=== PATIENT | male | born 1960 | race Hispanic/Latino ===

== ENCOUNTER 2019-02-24 09:47 | Day surgery (SDC) | payer MEDICARE ==
[~2019-02-24 09:47] MED LIST: NACL 0.9% 1000 ML IR ONE; WATER FOR IRRIG STERILE IR ONE
[2019-02-24] MEDS ORDERED: NACL 0.9% 1000 ML 1,000 ML IV SCH ×2 (10:00→11:00)
[2019-02-24] MEDS ORDERED: NACL 0.9% 1000 ML 1,000 ML ONE (10:17)
[2019-02-24] MEDS ORDERED: NARCAN 0.4 MG/1 ML IV PRN (10:36)
[2019-02-24] MEDS ORDERED: DILAUDID IV PRN (10:36)
[2019-02-24] MEDS ORDERED: ANCEF/STERILE WATER 2 GM/20 ML 2 GM/20 ML SYRINGE IV NR (10:36)
[2019-02-24] MEDS ORDERED: SUBLIMAZE IV PRN (10:36)
[2019-02-24] MEDS ORDERED: DEMEROL IV PRN (10:36)
[2019-02-24] MEDS ORDERED: ZOFRAN IV PRN (10:36)
[2019-02-24 11:05] LABS: Basophils % (Auto) 0.4 % (0.0-1.8); Eosinophils # (Auto) 0.7 K/mm3 (0.0-0.4); Hematocrit 49.1 % (35.5-45.6); Hemoglobin 16.8 gm/dl (11.8-15.2); Lymphocytes # (Auto) 1.3 K/mm3 (1.2-5.4); Lymphocytes % (Auto) 14.3 % (13.4-35.0); Mean Corpuscular HGB Conc 34 % (32-34); Mean Corpuscular Volume 104 fl (84-94); Monocytes # (Auto) 1.1 K/mm3 (0.0-0.8); Monocytes % (Auto) 12.2 % (0.0-7.3); Platelet Count 235 K/mm3 (140-440); Red Blood Count 4.73 M/mm3 (3.65-5.03); Red Cell Distribution Width 14.4 % (13.2-15.2)
[2019-02-24 11:15] LABS: Calcium 9.3 mg/dL (8.4-10.2)
[2019-02-24] MEDS ORDERED: XYLOCAINE MPF 2% ONE (11:16)
[2019-02-24] MEDS ORDERED: SUBLIMAZE ONE (11:16)
[2019-02-24] MEDS ORDERED: DIPRIVAN 10 MG/ML IV ONE (11:16)
[2019-02-24] MEDS ORDERED: ROBINUL ONE (11:17)
--- NOTE | 2019-02-24 11:29 | Anesthesia Consultation ---
Anesthesia Consult and Med Hx Date of service: 02/24/19 - Airway Anesthetic Teeth Evaluation: Good ROM Head & Neck: Inadequate Mental/Hyoid Distance: Inadequate Mallampati Class: Class III Intubation Access Assessment: Possibly Difficult - Pulmonary Exam CTA: Yes - Cardiac Exam Cardiac Exam: RRR - Pre-Operative Health Status ASA Pre-Surgery Classification: ASA4 Proposed Anesthetic Plan: General - Pulmonary Hx Smoking: No Hx Asthma: No Hx Respiratory Symptoms: No Home Oxygen Therapy: No Hx Sleep Apnea: Yes (DX SLEEP APNEA WITH CPAP USE.) - Cardiovascular System Hx Hypertension: Yes (X 40 YRS; ordered EKG this morning ) Hx Coronary Artery Disease: No Hx Heart Attack/AMI: No Hx Cardia Arrhythmia: No - Central Nervous System Hx Neuromuscular Disorder: No CVA: No Hx Psychiatric Problems: No - Gastrointestinal Hx Gastroesophageal Reflux Disease: No - Endocrine Hx End Stage Renal Disease: Yes (HD yesterday; K+ 5.3 today) Hx Liver Disease: No Hx Insulin Dependent Diabetes: No Hx Non-Insulin Dependent Diabetes: No Hx Thyroid Disease: No - Hematic Hx Anemia: No - Other Systems Hx Alcohol Use: No Hx Cancer: Yes (prostate cancer) Hx Obesity: Yes - Additional Comments Anesthesia Medical History Comments: Shoulder replacement 06/2018 with no GAC; no FHAC
--- NOTE | 2019-02-24 11:30 | Anesthesia Day of Surgery ---
Anesthesia Day of Surgery - Day of Surgery Patient Examined: Yes Patient H&P Reviewed: Yes Patient is NPO: Yes Beta Blockers: No (n/a) Cardiac Clearance: No (n/a) Pulmonary Clearance: No (n/a)
[2019-02-24] MEDS ORDERED: Vasostrict ONE (11:53)
[2019-02-24] MEDS ORDERED: WATER FOR IRRIG STERILE IR ONE (12:12)
[2019-02-24] MEDS ORDERED: NACL 0.9% 1000 ML IR ONE (12:20)
--- NOTE | 2019-02-24 12:56 | Post Operative Note ---
Date of procedure: 02/24/19 Pre-op diagnosis: ca prostate Post-op diagnosis: same Findings: rec cap Procedure: cysto cryo ablation Anesthesia: GETA Surgeon: CARMELA SPAIN Estimated blood loss: minimal Pathology: none Condition: stable Disposition: PACU
--- NOTE | 2019-02-24 12:57 | Discharge Summary ---
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
--- NOTE | 2019-02-24 14:13 | Operative Report ---
PREOPERATIVE DIAGNOSIS: Recurrent prostate cancer, post-radiation seed therapy. POSTOPERATIVE DIAGNOSIS: Recurrent prostate cancer, post-radiation seed therapy. PROCEDURE: Cystoscopy, cryoablation of prostate. SURGEON: Kali Carter MD ANESTHESIA: General. FINDINGS: This is a gentleman for salvage cryosurgical ablation of the prostate. He has had previous radiation therapy. All risks and complications discussed. He is also on dialysis, but is not anuric. DESCRIPTION OF PROCEDURE: The patient was brought to the operating room and placed on the operating table. Following induction of anesthesia, placed in lithotomy position, prepped and draped in usual sterile fashion. Just to be on the safe side, flexible cystoscopy was carried out. There were no strictures. A 16-catheter was placed. Scrotum was elevated and the ultrasound was placed. All the probes were checked. Prostate measured about 22 grams. Probes 1 and 2 were placed ____ placed towards the right side of the gland. External sphincter temperature probe was also placed. Probes 3 and 4 were placed and 5 was placed. It should be noted that the gland was small. We did not want to damage the urethra, did not place a probe #6. We thought we had excellent coverage and we always placed it after the first freeze if we needed it. At this point, flexible cystoscopy was carried out and the wire was placed and under ultrasound guidance, a warming catheter was placed in great position. At this point, this was secured and we rechecked the probe multiple times and first freeze was carried out. We carried the ice ball down to the base and [place] got to about 3 degrees. Thaw was carried out, the probes were rechecked, a second freeze was carried out as well. Excellent ice was achieved, the ____ was gone and we had an excellent freeze both times and did not need probe #6. The patient tolerated the procedure well. There were no significant complications. A 20-[place] coude catheter was placed at the end of the case, brought to recovery in stable condition. JOB# [id number] ELIZABETH/QUIRINO
--- NOTE | 2019-02-24 14:30 | Post Anesthesia Evaluation ---
- Post Anesthesia Evaluation Patient Participated: Yes Airway Patent: Yes Stable Respiratory Function: Yes Nausea/Vomiting: No Temp > 96.8F: Yes Pain Manageable: Yes Adequeate Hydration: Yes Anesthesia Complications: No
[2019-02-24 15:48] VITALS: BP 124/86
== END 2019-02-24 09:48 | disposition home or self-care (01) ==
LOC: OR 09:47
PROVIDERS: ATTEND Urology
DX: C61 Malignant neoplasm of prostate (principal); I12.0 Hypertensive chronic kidney disease with stage 5 chronic kidney disease or end stage renal disease; N18.6 End stage renal disease; G47.30 Sleep apnea, unspecified; F32.9 Major depressive disorder, single episode, unspecified; F41.9 Anxiety disorder, unspecified; E66.9 Obesity, unspecified; Z68.35 Body mass index [BMI] 35.0-35.9, adult; Z98.890 Other specified postprocedural states; Z99.2 Dependence on renal dialysis; Z79.899 Other long term (current) drug therapy; Z90.49 Acquired absence of other specified parts of digestive tract
CPT/HCPCS: 36415; 55873; 80048; 85025; J0690; J1170; J2704; J3010; J7030; C2618